=== PATIENT | male | born 1980 | race African-American/Black ===

== ENCOUNTER 2016-10-25 18:47 | Emergency (ER) | payer SELFPAY ==
[~2016-10-25] VITALS: Ht 177.8 cm; Wt 104.5 kg
[~2016-10-25 18:47] MED LIST: ACET325 PO; AMOX875T20 PO; CLAR10TA13 PO; PRED50 PO
[2016-10-25 18:54] VITALS: BP 128/62; PULSE 74; RESP 15; TEMP 98.3; O2SAT 98
--- NOTE | 2016-10-25 19:34 | PD ---
HPI Chief Complaint: Back/ Neck Pain or Injury Time Seen by Provider: 19:27 Travel History International Travel<30 days: No Contact w/Intl Traveler<30days: No Traveled to known affect area: No History of Present Illness HPI This is a 36-year-old male presents for evaluation of lower back pain. He reports symptoms started 2 or 3 days ago. The pain is a sharp pain in his lower back that radiates down the posterior aspect of the right thigh and calf. The pain is worse with certain movements such as bending over, lifting. He does not recall any specific inciting event however he does note that he has 4 kids and he is constantly bending over to lift them and he also works in [employer] which requires a lot of bending over and stooping. He has been using [id number] medications such as Advil, ibuprofen for symptom relief. Denies abdominal pain, bowel or bladder incontinence, saddle anesthesia. He has no other complaints at this time. [facility] Past Medical History Diminished Hearing: No Immunizations Current: Yes Past Surgical History Appendectomy: Yes Social History Alcohol Use: No Tobacco Use: No Substance Use: No Allergies-Medications (Allergen,Severity, Reaction): Coded Allergies: Phenergan (Verified Adverse Reaction, Intermediate, STS UNCONTROLLABLE MUSCLE SPASMS, 10/25/16) Reported Meds & Prescriptions Reported Meds & Active Scripts Active Baclofen 10 Mg Tab 10 Mg PO Q8HR PRN 10 Days Ibuprofen 800 Mg Tab 800 Mg PO Q6HR PRN Review of Systems Except as stated in HPI: all other systems reviewed are Neg Physical Exam Narrative GENERAL: Well-developed well-nourished male in no acute distress SKIN: Warm and dry. No rash no bruising or soft tissue swelling CARDIOVASCULAR: Regular rate and rhythm. No murmur appreciated. RESPIRATORY: No accessory muscle use. Clear to auscultation. Breath sounds equal bilaterally. GASTROINTESTINAL: Abdomen soft, non-tender, nondistended. Hepatic and splenic margins not palpable. MUSCULOSKELETAL: No obvious deformities. No lower extremity edema, negative Homans, positive right straight leg raise test. Is tenderness to palpation to the right lumbar paravertebral musculature. There is no vertebral midline tenderness. There is 5 out of 5 muscle strength in the lower extremities bilaterally. 2+ dorsalis pedis and posterior tibial pulses. NEUROLOGICAL: Awake and alert. No obvious cranial nerve deficits. Motor grossly within normal limits. Normal speech. Data Data Last Documented VS Vital Signs Date Time Temp Pulse Resp B/P Pulse Ox O2 Delivery O2 Flow Rate FiO2 10/25/16 18:54 98.3 74 15 128/62 98 Orders Dexamethasone Inj (Decadron Inj) (10/25/16 19:45) Ketorolac Inj (Toradol Inj) (10/25/16 19:45) MDM Medical Decision Making Medical Screen Exam Complete: Yes Emergency Medical Condition: Yes Medical Record Reviewed: Yes Differential Diagnosis Herniated mucous pulposus, piriformis syndrome, muscle spasm, muscle strain, compression fracture, cauda equina syndrome, discitis, epidural abscess, intermittent claudication, peripheral vascular disease, DVT, arterial occlusion Narrative Course This is a 36-year-old male who presents with 2 days of right-sided lower back pain that radiates down the posterior right leg. He notes that he does a lot of bending over and lifting at home, work. His symptoms and examination are consistent with lumbosacral radiculopathy. Plan is to treat the patient symptomatically with Decadron, Toradol injections here and discharged with ibuprofen, baclofen. Discussed lifting changes that the patient can make to help reduce pressure on the lower back and advised follow-up in 1-2 weeks with primary care physician. He is stable for discharge. Diagnosis Primary Impression: Lumbosacral radiculopathy Additional Instructions: Medication as prescribed. Do not drive or drink alcohol when taking baclofen. Avoid heavy lifting. As Discussed, when lifting things from ground level avoid bending over and instead lifted by utilizing a squatting position. Follow-up with primary care physician in one to 2 weeks for recheck. Return for any emergent medical conditions. Med/Other Pt SpecificInfo: Prescription(s) given Scripts Baclofen 10 Mg Tab10 Mg PO Q8HR PRN (MUSCLE SPASM) 10 Days Ref 0 Prov:Abhijeet Vu MD 10/25/16 Ibuprofen 800 Mg [id number] Mg PO Q6HR PRN (PAIN) #40 TAB Ref 0 Prov:Abhijeet Vu MD 10/25/16 Disposition: 01 DISCHARGE HOME Condition: Stable Andres Miguel Oct 25, 2016 19:34
[2016-10-25] MEDS ORDERED: BACL10TA PO (19:42)
[2016-10-25] MEDS ORDERED: IBUP800T23 PO (19:42)
[2016-10-25] MEDS ORDERED: DEXAMETHASONE SOD PHOS 4 MG/ML VIAL IM ONE (19:45)
[2016-10-25] MEDS ORDERED: KETOROLAC TROMETHAMINE 60 MG/2 ML (IM) VIAL IM ONE (19:45)
== END 2016-10-25 20:10 | disposition home or self-care (01) ==
LOC: NEPB 18:47
DX: M54.17 Radiculopathy, lumbosacral region (principal)
CPT/HCPCS: 96372; 99283; J1100; J1885

== ENCOUNTER 2016-12-13 19:16 | Emergency (ER) | payer SELFPAY ==
[~2016-12-13] VITALS: Ht 177.8 cm; Wt 110.0 kg
[~2016-12-13 19:16] MED LIST changes: -ACET325 PO; -AMOX875T20 PO; +BACL10TA PO; -CLAR10TA13 PO; +IBUP800T23 PO; -PRED50 PO
[2016-12-13 19:17] VITALS: BP 142/93; PULSE 94; RESP 18; TEMP 101.2; O2SAT 100
== END 2016-12-13 21:37 | disposition left against medical advice (07) ==
LOC: NETRI 19:16
DX: Z53.21 Procedure and treatment not carried out due to patient leaving prior to being seen by health care provider (principal)
CPT/HCPCS: 99281

== ENCOUNTER 2017-06-23 14:11 | Emergency (ER) | payer SELFPAY ==
[~2017-06-23] VITALS: Ht 177.8 cm; Wt 113.0 kg
[2017-06-23 14:15] VITALS: BP 145/91; PULSE 72; RESP 16; TEMP 97.8; O2SAT 99
[2017-06-23] MEDS ORDERED: PENI500T PO (14:44)
--- NOTE | 2017-06-23 14:45 | PD ---
HPI Chief Complaint: Oral / Dental Pain or Problem Time Seen by Provider: 14:37 Travel History International Travel<30 days: No Contact w/Intl Traveler<30days: No Traveled to known affect area: No History of Present Illness HPI 37 year old who presents to the emergency room for evaluation of left-sided facial swelling and dental pain for the past 4 days. Patient states swelling seems to be worsening every day; today's the worst it has been. Denies fever, chills, nausea, vomiting. He does not have a dentist. He has been taking BC powders and Tylenol without significant relief in symptoms. Pain is localized to the left lower jaw without radiation. Denies history of dental problems. Patient smokes. PFSH Past Medical History Diminished Hearing: No Immunizations Current: Yes Past Surgical History Appendectomy: Yes Social History Alcohol Use: No Tobacco Use: No Substance Use: No Allergies-Medications (Allergen,Severity, Reaction): Coded Allergies: promethazine (Unverified Adverse Reaction, Intermediate, STS UNCONTROLLABLE MUSCLE SPASMS, 06/23/17) Reported Meds & Prescriptions Reported Meds & Active Scripts Active Penicillin V Potassium 500 Mg Tab 500 Mg PO Q8H 10 Days Review of Systems Except as stated in HPI: all other systems reviewed are Neg Physical Exam Narrative GENERAL: Well-nourished, well-developed Aland acute distress. Afebrile. Ambulatory. SKIN: Focused skin assessment warm/dry. HEAD: Normocephalic. EYES: No scleral icterus. No injection or drainage. DENTAL: Good dentition overall. No loose or chipped teeth. No malocclusion. No obvious abscess. No erythematous or edematous gingiva. Tooth #17 is tender to palpation. No drainage. Very mild left-sided facial swelling. NECK: Supple, trachea midline. No JVD or lymphadenopathy. CARDIOVASCULAR: Regular rate and rhythm without murmurs, gallops, or rubs. RESPIRATORY: Breath sounds equal bilaterally. No accessory muscle use. Data Data Last Documented VS Vital Signs Date Time Temp Pulse Resp B/P (MAP) Pulse Ox O2 Delivery O2 Flow Rate FiO2 06/23/17 14:15 97.8 72 16 145/91 (109) 99 MDM Medical Decision Making Medical Screen Exam Complete: Yes Emergency Medical Condition: Yes Medical Record Reviewed: Yes Differential Diagnosis Dental abscess, gingivitis, dentalgia Narrative Course 37-year-old male presents to the emergency room for evaluation of a dental abscess to his left lower jaw that started 4 days ago. Patient is afebrile and well-appearing in the emergency room. Vital signs stable. Physical exam reveals very mild left-sided facial swelling and extreme tenderness to palpation of tooth #17. No gingival erythema, edema, obvious abscess, or drainage. Patient will be discharged with prescription for penicillin and told to follow-up with a dentist. Told to return for worsening symptoms. He understands and agrees to plan. Diagnosis Primary Impression: Dental abscess Referrals: Primary Care Physician Additional Instructions: Rest and drink plenty of fluids. Penicillin as directed, until gone. Follow-up with a dentist. Return to the emergency room for worsening symptoms. Med/Other Pt SpecificInfo: Prescription(s) given Scripts Penicillin V Potassium (Penicillin V Potassium) 500 Mg Tab 500 MG PO Q8H for Infection for 10 Days, TAB 0 Refills Prov: Charu Rdz MD 06/23/17 Disposition: 01 DISCHARGE HOME Condition: Stable Tonya Schulte Jun 23, 2017 14:45
== END 2017-06-23 14:56 | disposition home or self-care (01) ==
LOC: PHEFT 14:11
DX: K04.7 Periapical abscess without sinus (principal); Z72.0 Tobacco use
CPT/HCPCS: 99283

== ENCOUNTER 2017-07-14 23:04 | Emergency (ER) | payer SELFPAY ==
[~2017-07-14] VITALS: Ht 177.8 cm; Wt 113.7 kg
[~2017-07-14 23:04] MED LIST changes: -BACL10TA PO; -IBUP800T23 PO; +PENI500T PO
[2017-07-14 23:09] VITALS: BP 137/81; PULSE 64; RESP 16; TEMP 97.7; O2SAT 98
--- NOTE | 2017-07-14 23:54 | PD ---
HPI Chief Complaint: Skin Problem Time Seen by Provider: 23:47 Travel History International Travel<30 days: No Contact w/Intl Traveler<30days: No Traveled to known affect area: No History of Present Illness HPI The patient is a 37-year-old schizophrenic, frequent visitor to the emergency departments, who complains of a sore on the right side of his face for 2 days. He does not know if this was a bite. It is in his oden and may be pseudofolliculitis barbae. He states that he does not want this cut on. PFSH Past Medical History Medical History: Denies Significant Hx Diminished Hearing: No Immunizations Current: Yes Tetanus Vaccination: < 5 Years Influenza Vaccination: No Past Surgical History Appendectomy: Yes Social History Alcohol Use: No Tobacco Use: No Substance Use: No Allergies-Medications (Allergen,Severity, Reaction): Coded Allergies: promethazine (Unverified Adverse Reaction, Intermediate, STS UNCONTROLLABLE MUSCLE SPASMS, 07/14/17) Reported Meds & Prescriptions Reported Meds & Active Scripts Active No Active Prescriptions or Reported Medications Review of Systems Except as stated in HPI: all other systems reviewed are Neg Physical Exam Narrative GENERAL: Well-nourished, well-developed patient. SKIN: Focused skin assessment warm/dry. There is a 1 cm likely developing abscess located in the oden in the skin near the angle of the mandible on his right. It is not fluctuant but does appear as an early abscess, not drainable at this time. There is a small amount of cellulitis about 2 cm in diameter present. This is likely started from an ingrown hair on the oden. HEAD: Normocephalic. EYES: No scleral icterus. No injection or drainage. NECK: Supple, trachea midline. No JVD or lymphadenopathy. CARDIOVASCULAR: Regular rate and rhythm without murmurs, gallops, or rubs. RESPIRATORY: Breath sounds equal bilaterally. No accessory muscle use. GASTROINTESTINAL: Abdomen soft, non-tender, nondistended. MUSCULOSKELETAL: No cyanosis, or edema. BACK: Nontender without obvious deformity. No CVA tenderness. Data Data Last Documented VS Vital Signs Date Time Temp Pulse Resp B/P (MAP) Pulse Ox O2 Delivery O2 Flow Rate FiO2 07/14/17 23:09 97.7 64 16 137/81 (99) 98 Orders Orders Acetaminophen (Tylenol) (07/15/17 00:00) Sulfamet-Trimeth Ds 800-160 Mg (Bactrim (07/15/17 00:00) Doxycycline (Vibramycin) (07/15/17 00:00) [facility] Medical Decision Making Medical Screen Exam Complete: Yes Emergency Medical Condition: Yes Medical Record Reviewed: Yes Differential Diagnosis Cellulitis, abscess, pseudo- folliculitis barbae Narrative Course The patient likely has pseudofolliculitis barbae with an early abscess. The abscess is not drainable at this time. Plan: The patient will be given Septra DS and doxycycline to cover the likely cause-MRSA. He needs to use warm compresses 4 times daily on the area. Diagnosis Primary Impression: Pseudofolliculitis barbae Additional Impression: Facial abscess Additional Instructions: As we discussed, use warm compresses 4 times daily about 30 minutes each time. Try using a wire brush to pull out any hair that has grown underneath the skin. The antibiotics are both twice daily for 10 days. Follow-up in about 4 days with your primary care physician or here to reevaluate this early abscess. Med/Other Pt SpecificInfo: Prescription(s) given Scripts Doxycycline Hyclate (Doxycycline Hyclate) 100 Mg Cap 100 MG PO BID for Infection, #20 CAP 0 Refills Prov: Marcin Martino MD 07/14/17 Sulfamethoxazole-Trimethoprim (Bactrim DS) 800-160 Mg Tab 1 TAB PO BID for Infection, #20 TAB 0 Refills Prov: Marcin Martino MD 07/14/17 Disposition: 01 DISCHARGE HOME Condition: Stable Marcin Martino MD Jul 14, 2017 23:54
[2017-07-14] MEDS ORDERED: BACT800T5 PO (23:59)
[2017-07-14] MEDS ORDERED: DOXY100C PO (23:59)
[2017-07-15] MEDS ORDERED: ACETAMINOPHEN 500 MG CPLT PO ONE
[2017-07-15] MEDS ORDERED: SULFAMETHOXAZOLE-TRIMETHOPRIM DS 800-160 MG TAB PO ONE
[2017-07-15] MEDS ORDERED: DOXYCYCLINE HYCLATE 100 MG CAP PO ONE
[2017-07-15 00:10] VITALS: BP 144/94; PULSE 67; RESP 16; O2SAT 98
== END 2017-07-15 00:22 | disposition home or self-care (01) ==
LOC: PHED 23:04
DX: L73.1 Pseudofolliculitis barbae (principal); L02.01 Cutaneous abscess of face
CPT/HCPCS: 99284

== ENCOUNTER 2017-12-31 20:59 | Emergency (ER) | payer SELFPAY ==
[~2017-12-31] VITALS: Ht 177.8 cm; Wt 114.0 kg
[~2017-12-31 20:59] MED LIST changes: +BACT800T5 PO; +DOXY100C PO; -PENI500T PO
[2017-12-31 22:39] VITALS: BP 121/71; PULSE 69; RESP 16; TEMP 98.1; O2SAT 99
[2017-12-31] MEDS ORDERED: ONDANSETRON HCL 4 MG/2 ML VIAL IV PUSH ONE (23:15)
[2017-12-31] MEDS ORDERED: FAMOTIDINE 20 MG/2 ML VIAL IV PUSH SCH (23:15)
[2017-12-31 23:43] LABS: AUTOMATED NEUTROPHIL # 4.4 TH/MM3 (1.8-7.7); BASOPHIL # 0.1 TH/MM3 (0-0.2); BASOPHIL % 1.3 % (0.0-2.0); EOSINOPHIL # 0.2 TH/MM3 (0-0.4); EOSINOPHIL % 2.2 % (0.0-4.0); HEMATOCRIT 45.1 % (39.0-51.0); HEMOGLOBIN 15.5 GM/DL (13.0-17.0); LYMPH % 28.6 % (9.0-44.0); LYMPHOCYTE # 2.1 TH/MM3 (1.0-4.8); MEAN CELL VOLUME 93.5 FL (80.0-100.0); MEAN CORPUSCULAR HEMOGLOBIN 32.2 PG (27.0-34.0); MEAN CORPUSCULAR HGB CONC 34.4 % (32.0-36.0); MEAN PLATELET VOLUME 8.4 FL (7.0-11.0); MONO % 9.6 % (0.0-8.0); MONOCYTE # 0.7 TH/MM3 (0-0.9); NEUT % 58.3 % (16.0-70.0); PLATELET COUNT 223 TH/MM3 (150-450); RED BLOOD COUNT 4.83 MIL/MM3 (4.50-5.90); RED CELL DISTRIBUTION WIDTH 14.8 % (11.6-17.2); WHITE BLOOD COUNT 7.5 TH/MM3 (4.0-11.0)
[2018-01-01 00:07] LABS: ALBUMIN 3.9 GM/DL (3.4-5.0); ALT (GPT) 50 U/L (12-78); AST (GOT) 29 U/L (15-37); BICARBONATE 32.1 MEQ/L (21.0-32.0); BLOOD UREA NITROGEN 16 MG/DL (7-18); CALCIUM 8.9 MG/DL (8.5-10.1); CHLORIDE 103 MEQ/L (98-107); CREATININE 1.32 MG/DL (0.60-1.30); GLOMERULAR FILTRATION RATE 74 ML/MIN (>89); GLUCOSE,RANDOM 103 MG/DL (74-106); SODIUM (NA) 142 MEQ/L (136-145)
[2018-01-01 00:11] LABS: ALKALINE PHOSPHATASE 56 U/L (45-117); TOTAL BILIRUBIN ADULT 0.4 MG/DL (0.2-1.0); TOTAL PROTEIN 7.6 GM/DL (6.4-8.2); TROPONIN I LESS THAN 0.02 NG/ML (0.02-0.05)
[2018-01-01] MEDS ORDERED: KETOROLAC TROMETHAMINE 30 MG/ML (IVP) VIAL IV PUSH ONE (01:00)
[2018-01-01] MEDS ORDERED: SODIUM CHLOR 0.9% 1000 ML INJ 1,000 ML IV ONE ×2 (01:00→03:00)
--- NOTE | 2018-01-01 01:04 | PD ---
HPI Chief Complaint: Chest Pain Time Seen by Provider: 23:11 Travel History International Travel<30 days: No Contact w/Intl Traveler<30days: No Traveled to known affect area: No History of Present Illness HPI pt woke up this morning with headache and nasuea and vomitted multiple times , unable to keep anything down, pt has no sick contacts and no PMHx pt denies left CP his pain is epigastric and no RLQ pain no other complaitn , + body aches chills and N/V/ has not seen another MD and has not taken anything to alleviate his symptoms PFSH Past Medical History Medical History: Denies Significant Hx Diminished Hearing: No Immunizations Current: Yes Past Surgical History Appendectomy: Yes Social History Alcohol Use: No Tobacco Use: No Substance Use: No Allergies-Medications (Allergen,Severity, Reaction): Coded Allergies: promethazine (Unverified Adverse Reaction, Intermediate, STS UNCONTROLLABLE MUSCLE SPASMS, 12/31/17) Reported Meds & Prescriptions Reported Meds & Active Scripts Active Ibuprofen 600 Mg Tab 600 Mg PO Q6H PRN Zofran (Ondansetron HCl) 4 Mg Tab 4 Mg PO Q6HR PRN Doxycycline Hyclate 100 Mg Cap 100 Mg PO BID Bactrim DS (Sulfamethoxazole-Trimethoprim) 800-160 Mg Tab 1 Tab PO BID Review of Systems Except as stated in HPI: all other systems reviewed are Neg General / Constitutional: Positive: Chills Gastrointestinal: Positive: Nausea, Vomiting, Abdominal Pain Musculoskeletal: Positive: Myalgias Physical Exam Narrative GENERAL: Nontoxic appearing awake alert afebrile SKIN: Warm and dry. HEAD: Atraumatic. Normocephalic. EYES: Pupils equal and round. No scleral icterus. No injection or drainage. ENT: No nasal bleeding or discharge. Mucous membranes pink and moist. NECK: Trachea midline. No JVD. CARDIOVASCULAR: Regular rate and rhythm. RESPIRATORY: No accessory muscle use. Clear to auscultation. Breath sounds equal bilaterally. GASTROINTESTINAL: Abdomen positive tenderness in the epigastric area. No right lower quadrant tenderness. Hepatic and splenic margins not palpable. MUSCULOSKELETAL: Extremities without clubbing, cyanosis, or edema. No obvious deformities. NEUROLOGICAL: Awake and alert. No obvious cranial nerve deficits. Motor grossly within normal limits. Five out of 5 muscle strength in the arms and legs. Normal speech. PSYCHIATRIC: Appropriate mood and affect; insight and judgment normal. Data Data Last Documented VS Vital Signs Date Time Temp Pulse Resp B/P (MAP) Pulse Ox O2 Delivery O2 Flow Rate FiO2 01/01/18 02:27 62 18 134/80 (98) 60 18 122/77 (92) 68 18 126/83 (97) 12/31/17 22:39 98.1 99 Orders Orders Electrocardiogram (12/31/17 23:11) Complete Blood Count With Diff (12/31/17 23:11) Comprehensive Metabolic Panel (12/31/17 23:11) Troponin I (12/31/17 23:11) Lipase (12/31/17 23:11) Famotidine Inj (Pepcid Inj) (12/31/17 23:15) Ondansetron Inj (Zofran Inj) (12/31/17 23:15) Ketorolac Inj (Toradol Inj) (01/01/18 01:00) Sodium Chlor 0.9% 1000 Ml Inj (Ns 1000 M (01/01/18 01:00) Urinalysis - C+S If Indicated (01/01/18 00:53) Influenzae A/B Antigen (01/01/18 00:59) Sodium Chlor 0.9% 1000 Ml Inj (Ns 1000 M (01/01/18 03:00) Ed Discharge Order (01/01/18 04:15) Labs Laboratory Tests Test 12/31/17 23:25 01/01/18 01:10 White Blood Count 7.5 TH/MM3 Red Blood Count 4.83 MIL/MM3 Hemoglobin 15.5 GM/DL Hematocrit 45.1 % Mean Corpuscular Volume 93.5 FL Mean Corpuscular Hemoglobin 32.2 PG Mean Corpuscular Hemoglobin Concent 34.4 % Red Cell Distribution Width 14.8 % Platelet Count 223 TH/MM3 Mean Platelet Volume 8.4 FL Neutrophils (%) (Auto) 58.3 % Lymphocytes (%) (Auto) 28.6 % Monocytes (%) (Auto) 9.6 % Eosinophils (%) (Auto) 2.2 % Basophils (%) (Auto) 1.3 % Neutrophils # (Auto) 4.4 TH/MM3 Lymphocytes # (Auto) 2.1 TH/MM3 Monocytes # (Auto) 0.7 TH/MM3 Eosinophils # (Auto) 0.2 TH/MM3 Basophils # (Auto) 0.1 TH/MM3 CBC Comment DIFF FINAL Differential Comment Blood Urea Nitrogen 16 MG/DL Creatinine 1.32 MG/DL Random Glucose 103 MG/DL Total Protein 7.6 GM/DL Albumin 3.9 GM/DL Calcium Level 8.9 MG/DL Alkaline Phosphatase 56 U/L Aspartate Amino Transf (AST/SGOT) 29 U/L Alanine Aminotransferase (ALT/SGPT) 50 U/L Total Bilirubin 0.4 MG/DL Sodium Level 142 MEQ/L Potassium Level 3.2 MEQ/L Chloride Level 103 MEQ/L Carbon Dioxide Level 32.1 MEQ/L Anion Gap 7 MEQ/L Estimat Glomerular Filtration Rate 74 ML/MIN Troponin I LESS THAN 0.02 NG/ML Lipase 283 U/L Urine Color YELLOW Urine Turbidity CLEAR Urine pH 6.5 Urine Specific [place] 1.027 Urine Protein TRACE mg/dL Urine Glucose (UA) NEG mg/dL Urine Ketones NEG mg/dL Urine Occult Blood NEG Urine Nitrite NEG Urine Bilirubin NEG Urine Urobilinogen 2.0 MG/DL Urine Leukocyte Esterase NEG Urine RBC 1 /hpf Urine WBC LESS THAN 1 /hpf Urine Mucus FEW /lpf Microscopic Urinalysis Comment CULT NOT INDICATED MDM Medical Decision Making Medical Screen Exam Complete: Yes Emergency Medical Condition: Yes Differential Diagnosis pt could have viral Gastroenteritis vs vs food bourne toxins causing symptoms vomit headache body aches , pt could have the flu , other, Narrative Course NS x 2 liters and Zofran pepcid after 2 liters pt feels better , he tolerates PO and is discharged with zofran Rx , he was dehydratted based on his creatinine lab values Diagnosis Primary Impression: Viral illness Additional Impression: Gastroenteritis Patient Instructions: Gastroenteritis (ED), General Instructions Scripts Ibuprofen (Ibuprofen) 600 Mg Tab 600 MG PO Q6H Y for Pain/Inflammation, #20 TAB 0 Refills Prov: David Carl MD 01/01/18 Ondansetron (Zofran) 4 Mg Tab 4 MG PO Q6HR Y for NAUSEA OR VOMITING, #10 TAB 0 Refills Prov: David Carl MD 01/01/18 Disposition: 07 AGAINST MEDICAL ADVICE David Carl MD Jan 01, 2018 01:04
[2018-01-01 01:24] LABS: BILIRUBIN, URINE NEG (NEG); BLOOD, URINE NEG (NEG); GLUCOSE,URINE NEG (NEG); KETONE, URINE NEG (NEG); MUCUS URINE FEW /lpf (OCC); NITRITE,URINE NEG (NEG); PH, URINE 6.5 (5.0-8.5); URINE COLOR YELLOW (YELLW/STRAW); URINE LEUKOCYTE ESTERASE NEG (NEG)
[2018-01-01 02:27] VITALS: BP_SYST 122; BP_SYST 126; BP_SYST 134; BP_DIAS 77; BP_DIAS 80; BP_DIAS 83; RESP 18
[2018-01-01] MEDS ORDERED: ZOFR4TAB PO (04:13)
[2018-01-01] MEDS ORDERED: IBUP-232 PO (04:13)
--- NOTE | 2018-01-01 14:04 | EKG ---
Date Performed: 12/31/2017 Time Performed: 23:20:45 PTAGE: 37 years EKG: Sinus rhythm MODERATE INTRAVENTRICULAR CONDUCTION DELAY BORDERLINE ECG Since the PREVIOUS TRACING , no significant change noted PREVIOUS TRACIN04/22/2007 00.11 DOCTOR: Nany Mena Interpretating Date/Time 01/01/2018 13:56:08
== END 2018-01-01 04:34 | disposition home or self-care (01) ==
LOC: NEPC 20:59
DX: B34.9 Viral infection, unspecified (principal); R51 Headache; R10.13 Epigastric pain; M79.1 Myalgia; R68.83 Chills (without fever); E86.0 Dehydration; K52.9 Noninfective gastroenteritis and colitis, unspecified; R94.31 Abnormal electrocardiogram [ECG] [EKG]
CPT/HCPCS: 80053; 81001; 83690; 84484; 85025; 87804; 93005; 96374; 96375; 99284; J1885; J2405; J7030

== ENCOUNTER 2018-03-25 14:44 | Emergency (ER) | payer SELFPAY ==
[~2018-03-25 14:44] MED LIST changes: +IBUP-232 PO; +ZOFR4TAB PO
[2018-03-25 14:55] VITALS: BP 159/96; PULSE 77; RESP 20; TEMP 98.6; O2SAT 97
[2018-03-25] MEDS ORDERED: PENI500T PO (15:21)
--- NOTE | 2018-03-25 15:21 | PD ---
HPI Chief Complaint: Oral / Dental Pain or Problem Time Seen by Provider: 15:14 Travel History International Travel<30 days: No Contact w/Intl Traveler<30days: No Traveled to known affect area: No History of Present Illness HPI 88-year-old male here with left lower dental pain and tenderness. He reports mild gum swelling. No fever chills. Symptom severity is mild to moderate. Aggravated by hot and cold liquids and chewing. PFSH Past Medical History Medical History: Denies Significant Hx Diminished Hearing: No Immunizations Current: Yes Tetanus Vaccination: < 5 Years Influenza Vaccination: No Past Surgical History Appendectomy: Yes Social History Alcohol Use: No Tobacco Use: No Substance Use: No Allergies-Medications (Allergen,Severity, Reaction): Coded Allergies: promethazine (Unverified Adverse Reaction, Intermediate, STS UNCONTROLLABLE MUSCLE SPASMS, 12/31/17) Reported Meds & Prescriptions Reported Meds & Active Scripts Active Review of Systems Except as stated in HPI: all other systems reviewed are Neg General / Constitutional: No: Fever Physical Exam Narrative GENERAL: Alert and well-appearing 38-year-old male SKIN: Warm and dry. HEAD: Normocephalic. EYES: No injection or drainage. ENT: Gum erythema and mild swelling around tooth #17 NECK: Supple, trachea midline. No lymphadenopathy. CARDIOVASCULAR: Regular rate and rhythm without murmurs, gallops, or rubs. RESPIRATORY: Breath sounds equal bilaterally. No accessory muscle use. Data Data Last Documented VS Vital Signs Date Time Temp Pulse Resp B/P (MAP) Pulse Ox O2 Delivery O2 Flow Rate FiO2 03/25/18 14:55 98.6 77 20 159/96 (117) 97 MDM Medical Decision Making Medical Screen Exam Complete: Yes Emergency Medical Condition: Yes Differential Diagnosis Dental infection, dentalgia, dental caries Narrative Course 38-year-old male here with left lower dental pain for several days. He is well- appearing. Diagnosis Primary Impression: Pain, dental Referrals: Primary Care Physician Additional Instructions: Tylenol or ibuprofen as needed for pain. Antibiotics as directed. Follow-up with her dentist. Scripts Penicillin V Potassium (Penicillin V Potassium) 500 Mg Tab 500 MG PO Q6H for Infection for 7 Days, #28 TAB 0 Refills Prov: Ingrid Shen 03/25/18 Disposition: 01 DISCHARGE HOME Condition: Stable Ingrid Shen Mar 25, 2018 15:21
[2018-03-25] MEDS ORDERED: IBUPROFEN 600 MG TAB PO ONE (15:30)
== END 2018-03-25 15:34 | disposition home or self-care (01) ==
LOC: PHEFT 14:44
DX: K08.89 Other specified disorders of teeth and supporting structures (principal)
CPT/HCPCS: 99283

== ENCOUNTER 2018-03-27 13:33 | Emergency (ER) | payer SELFPAY ==
[~2018-03-27] VITALS: Ht 175.3 cm; Wt 117.5 kg
[~2018-03-27 13:33] MED LIST changes: -BACT800T5 PO; -DOXY100C PO; -IBUP-232 PO; +PENI500T PO; -ZOFR4TAB PO
[2018-03-27 13:36] VITALS: BP 131/95; PULSE 74; RESP 16; TEMP 97.6; O2SAT 97
[2018-03-27] MEDS ORDERED: IBUP1TAB7 PO (13:55)
[2018-03-27] MEDS ORDERED: CLIN150C14 PO (13:55)
--- NOTE | 2018-03-27 13:55 | PD ---
HPI Chief Complaint: Oral / Dental Pain or Problem Time Seen by Provider: 13:41 Travel History International Travel<30 days: No Contact w/Intl Traveler<30days: No Traveled to known affect area: No History of Present Illness HPI 38-year-old male presents to emergency department with complaint of continued left upper dental pain 2 days. Says the pain is more to his left inner cheek/ gingiva area. He was seen here 2 days ago and was given a prescription for penicillin, which she has been taking, and says he has had no improvement in his pain. Says he was seen here in June for the same complaint and was given an antibiotic that worked, and he is requesting the antibiotic. Denies fever, vomiting. Denies sore throat, difficulty swallowing, unusual drooling. Rates pain 8/10. Worse with cold and warm foods, and chewing. No known relieving factors. Has not followed up with a dentist. No primary care provider. Allergies to promethazine. Denies significant past medical history. Has no other medical complaints. No other modifying factors or associated signs and symptoms. PFSH Past Medical History Medical History: Denies Significant Hx Diminished Hearing: No Immunizations Current: Yes Influenza Vaccination: No ?: Not Past Surgical History Appendectomy: Yes Social History Alcohol Use: No Tobacco Use: Yes (1 pk per week) Substance Use: No Allergies-Medications (Allergen,Severity, Reaction): Coded Allergies: promethazine (Unverified Adverse Reaction, Intermediate, STS UNCONTROLLABLE MUSCLE SPASMS, 12/31/17) Reported Meds & Prescriptions Reported Meds & Active Scripts Active Ibuprofen 800 Mg Tab 800 Mg PO Q6HR PRN Clindamycin (Clindamycin HCl) 150 Mg Cap 450 Mg PO Q6H 10 Days Penicillin V Potassium 500 Mg Tab 500 Mg PO Q6H 7 Days Review of Systems Except as stated in HPI: all other systems reviewed are Neg Physical Exam Narrative GENERAL: Well-nourished, well-developed black male patient, in no acute distress ; afebrile, nontoxic-appearing SKIN: Warm and dry. HEAD: Atraumatic. Normocephalic. No facial edema, erythema, tenderness on palpation. No lymphadenopathy. EYES: Pupils equal and round. No scleral icterus. No injection or drainage. ENT: Mucosa pink and moist. No erythema or exudates. No uvular edema. No uvular , palatal, or tonsillar deviation. Airway patent. EARS: Bilateral pinnae and external canals appear within normal limits. Bilateral tympanic membranes without erythema, dullness or perforation. MOUTH: Mucous membranes moist, no lesions, tongue and gums appear normal. Partial edentulous. Dental Cavities noted throughout. I am unable to elicit any tenderness on palpation of the left upper dentition. Surrounding gingiva is without erythema, edema, drainage. No obvious abscess noted. No palpable abscess to the left inner cheek; the right and left inner cheeks feel similar on palpation. NECK: Trachea midline. No lymphadenopathy. CARDIOVASCULAR: Regular rate. RESPIRATORY: No accessory muscle use. GASTROINTESTINAL: Obese. MUSCULOSKELETAL: No obvious deformities. No clubbing. No cyanosis. No edema. NEUROLOGICAL: Awake and alert. Oriented 3. No obvious cranial nerve deficits. Motor grossly within normal limits. Normal speech. PSYCHIATRIC: Appropriate mood and affect; insight and judgment normal. Data Data Last Documented VS Vital Signs Date Time Temp Pulse Resp B/P (MAP) Pulse Ox O2 Delivery O2 Flow Rate FiO2 03/27/18 13:46 18 03/27/18 13:36 97.6 74 131/95 (107) 97 Orders Orders Ibuprofen (Motrin) (03/27/18 14:00) Ed Discharge Order (03/27/18 13:55) MDM Medical Decision Making Medical Screen Exam Complete: Yes Emergency Medical Condition: Yes Medical Record Reviewed: Yes Differential Diagnosis Dental abscess, facial abscess, dentalgia, infected dental caries, gingivitis Narrative Course 38-year-old male with dental pain to the left upper, left inner cheek area. There is no palpable abscess. No obvious abscess noted. No elicited pain on tenderness of palpation of the left upper dentition. The patient was seen here 2 days ago and was given a prescription for Penicillin VK. He was also seen here in June for a similar complaint and is requesting the antibiotic he was given back in June, because it works. He was also given Penicillin VK back in June. I discussed this with the patient. He would like to try a different antibiotic. Instructed patient to stop Penicillin VK. Clindamycin prescribed for home. Instructed patient to follow-up with dentist. Instructed patient to follow up with primary care provider. Patient verbalizes understanding and agreement with treatment plan. Patient is medically cleared and stable for discharge. Discussed reasons to return to the emergency department. Patient agrees with treatment plan. The patients vital signs are stable and the patient is stable for outpatient follow-up and treatment. Patient discharged home, stable and in no acute distress. Diagnosis Primary Impression: Pain, dental Referrals: [facility] Dentist Primary Care Physician Patient Instructions: Dental Abscess (ED), Dental Caries (ED), General Instructions, Toothache (ED) Additional Instructions: Stop Penicillin Complete full course of antibiotics Ibuprofen or Tylenol as directed and as needed to reduce pain and inflammation Warm or cool compresses to the affected area Follow-up with dentist Follow-up with primary care provider Return to emergency department immediately with worsening of symptoms Med/Other Pt SpecificInfo: Prescription(s) given, Med Stopped Scripts Ibuprofen (Ibuprofen) 800 Mg Tab 800 MG PO Q6HR Y for PAIN, #30 TAB 0 Refills Prov: Mendy Jimenez 03/27/18 Clindamycin (Clindamycin) 150 Mg Cap 450 MG PO Q6H for Infection for 10 Days, #120 CAP 0 Refills Prov: Mendy Jimenez 03/27/18 Disposition: 01 DISCHARGE HOME Condition: Stable Mendy Jimenez Mar 27, 2018 13:55
[2018-03-27] MEDS ORDERED: IBUPROFEN 800 MG TAB PO ONE (14:00)
== END 2018-03-27 14:15 | disposition home or self-care (01) ==
LOC: PHEFT 13:33
DX: K08.89 Other specified disorders of teeth and supporting structures (principal); F17.200 Nicotine dependence, unspecified, uncomplicated
CPT/HCPCS: 99283